=== PATIENT | male | born 1995 | race Caucasian/White ===

== ENCOUNTER 2016-04-03 11:45 | Emergency (ER) | payer BC, OTHER ==
[2016-04-03] MEDS ORDERED: ALBUTEROL NEB 2.5 MG/3 ML INH STA (12:24)
== END 2016-04-03 13:50 | disposition home or self-care (01) ==
DX: J18.9 Pneumonia, unspecified organism (principal)
CPT/HCPCS: 71020; 94640; 94664; 99283; 99284; J7613

== ENCOUNTER 2016-09-20 14:59 | Emergency (ER) | payer BC, OTHER ==
[2016-09-20 15:13] VITALS: BP 131/80
[2016-09-20] MEDS ORDERED: BUFFERED LIDOCAINE 10 ML SYRINGE ONE (16:09)
--- NOTE | 2016-09-20 16:22 | ED Physician Documentation ---
PD HPI UPPER EXT INJURY - Stated complaint Stated Complaint: LT UE LAC - Chief complaint Chief Complaint: Ext Problem - History obtained from History obtained from: Patient - History of Present Illness Location: Left, Forearm Type of injury: Laceration (knife) Where injury occurred: Work (PCS) Timing - onset: Today Review of Systems Constitutional: denies: Fever, Chills GI: denies: Abdominal Pain, Nausea : reports: Reviewed and negative PD PAST MEDICAL HISTORY - Past Medical History Past Medical History: Yes GI: GERD - Past Surgical History Past Surgical History: Yes - Present Medications Home Medications: Ambulatory Orders Medication Instructions Recorded Confirmed No Known Home Medications [No 09/20/16 09/20/16 Known Home Medications] - Allergies Allergies/Adverse Reactions: Allergies Allergy/AdvReac Type Severity Reaction Status Date / Time codeine Allergy Unknown Verified 09/20/16 15:10 - Social History Does the pt smoke?: Yes Smoking Status: Current every day smoker Does the pt drink ETOH?: No Does the pt have substance abuse?: No - Immunizations Immunizations: TDAP current <10years PD ED PE NORMAL - Vitals Vital signs reviewed: Yes - General General: Alert and oriented X 3, No acute distress - Extremities Extremities: Other (1 cm laceration mid left anterior forearm without distal neurovascular compromise, flexor tendon function is intact in all fingers.) - Neuro Neuro: Alert and oriented X 3, Normal speech - Psych Psych: Normal mood, Normal affect Results - Vitals Vitals: Vital Signs - 24 hr 09/20/16 15:06 Temperature 36.8 C Heart Rate 83 Respiratory 18 Rate Blood Pressure 131/80 H O2 Saturation 99 Oxygen O2 Source Room air Procedures - Laceration (location) L arm Length in cm: 1 Wound type: Linear Neurovascular status: Sensory intact, Motor intact, Vascular intact Tendon involvement: Tendon intact Anesthesia: Lidocaine 1%, With bicarb Wound Preparation: Betadine, Irrigated copiously NS Skin layer closure: Nylon, Interrupted, Size #-0 - enter number (4-0), Sutures - enter # (3) Other: Patient tolerated well, No complications, Neurovascular intact, Tetanus UTD Complexity: Simple Departure - Departure Disposition: 01 Home, Self Care Clinical Impression: Laceration of arm Qualifiers: Encounter type: initial encounter Laterality: left Qualified Code(s): S41.112A - Laceration without foreign body of left upper arm, initial encounter Condition: Good Record reviewed to determine appropriate education?: Yes Instructions: ED Laceration All Comments: Come back for any signs of infection which would include: Redness, swelling, drainage, increased pain, or fevers. Follow-up with your physician in 10-14 days for suture removal. Your blood pressure was elevated today on check into the emergency department. This does not mean that you have hypertension, it is a common phenomenon to come to the emergency department and have elevated blood pressure. I recommend that she see her primary care physician within the week to have it rechecked when you are feeling better. Forms: Activity restrictions
== END 2016-09-20 16:28 | disposition home or self-care (01) ==
LOC: ED 14:59
DX: S51.812A Laceration without foreign body of left forearm, initial encounter (principal); W26.0XXA Contact with knife, initial encounter; Y99.0 Civilian activity done for income or pay; R03.0 Elevated blood-pressure reading, without diagnosis of hypertension; F17.200 Nicotine dependence, unspecified, uncomplicated
CPT/HCPCS: 1040M; 12001; 99282; 99283

== ENCOUNTER 2020-06-15 10:30 | Emergency (ER) | payer BC, OTHER ==
[2020-06-15 10:40] VITALS: BP 128/73
--- NOTE | 2020-06-15 10:50 | ED Physician Documentation ---
PD HPI LOWER EXT INJURY - Stated complaint Stated Complaint: LT ANKLE PX - Chief complaint Chief Complaint: Ext Problem - History obtained from History obtained from: Patient - History of Present Illness PD HPI LOW EXT INJURY LOCATION: Left - Additional information Additional information: 4 days ago he twisted his ankle, work-related injury. He has had increasing medial ankle pain since. He was seen at an urgent care on the day of the injury and had both ankle and foot x-rays that were normal and he has documentation of these. Review of Systems Constitutional: reports: Reviewed and negative Eyes: reports: Reviewed and negative Ears: reports: Reviewed and negative Nose: reports: Reviewed and negative Throat: reports: Reviewed and negative PD PAST MEDICAL HISTORY - Past Medical History GI: GERD - Past Surgical History Past Surgical History: Yes - Present Medications Home Medications: Ambulatory Orders Medication Instructions Recorded Confirmed No Known Home Medications 09/20/16 09/20/16 - Allergies Allergies/Adverse Reactions: Allergies Allergy/AdvReac Type Severity Reaction Status Date / Time codeine Allergy Unknown Verified 06/15/20 10:41 - Social History Does the pt smoke?: Yes Smoking Status: Current every day smoker Does the pt drink ETOH?: No Does the pt have substance abuse?: No - Immunizations Immunizations: TDAP current <10years PD ED PE NORMAL - Vitals Vital signs reviewed: Yes - General General: Alert and oriented X 3, No acute distress - HEENT HEENT: PERRL, EOMI - Neck Neck: No bony TTP - Extremities Extremities: Other (Right ankle is tender along the medial malleolus without joint laxity. Painless inversion and eversion as well as internal and external rotation. Mild pain with flexion and extension of the ankle. No proximal fibular tenderness. Achilles function is intact.) - Neuro Neuro: Alert and oriented X 3, Normal speech Results - Vitals Vitals: Vital Signs - 24 hr 06/15/20 10:35 Temperature 36.3 C L Heart Rate 68 Respiratory 17 Rate Blood Pressure 128/73 O2 Saturation 99 Oxygen O2 Source Room air PD MEDICAL DECISION MAKING - ED course ED course: 25-year-old gentleman with persistent pain after a medial ankle sprain with previously negative x-rays. Probably too soon to consider eric-raying. Discussed follow-up and return precautions. He also needed an extension on his work note. Departure - Departure Disposition: 01 Home, Self Care Clinical Impression: Left ankle sprain Qualifiers: Encounter type: initial encounter Involved ligament of ankle: deltoid ligament Qualified Code(s): S93.422A - Sprain of deltoid ligament of left ankle, initial encounter Condition: Good Record reviewed to determine appropriate education?: Yes Instructions: ED Sprain Ankle W X Ray Follow-Up: [facility] [Provider Group] - Within 1 week Comments: Tylenol and ibuprofen as needed for pain. Return if worsening. Follow-up with the orthopedic surgeons, call them on Wednesday for an appointment. Forms: Activity restrictions Discharge Date/Time: 06/15/20 11:06
--- OUTSIDE RECORDS SUMMARY | 2020-06-19 02:30 | EXTERNAL MEDICAL SUMMARY RPT | Continuity of Care Document ---
:1995 Demographics Phone Unavailable Preferred Language Unknown Marital Status Unknown Christian Affiliation Unknown Race Unknown Ethnic Group Unknown Author Organization [place] Address [address] [id number] Phone Social History date description facility [phone]
== END 2020-06-15 11:06 | disposition home or self-care (01) ==
LOC: ED 10:30
DX: S93.422A Sprain of deltoid ligament of left ankle, initial encounter (principal); X50.1XXA Overexertion from prolonged static or awkward postures, initial encounter; Y99.0 Civilian activity done for income or pay; F17.200 Nicotine dependence, unspecified, uncomplicated
CPT/HCPCS: 99282; 99284

== ENCOUNTER 2023-01-02 21:48 | Emergency (ER) | payer BC ==
[2023-01-02 22:06] VITALS: BP 161/100; O2SAT 99
--- NOTE | 2023-01-02 22:27 | ED Physician Documentation ---
History of Present Illness - Stated complaint Stated Complaint: R FINGER LAC - Chief complaint Chief Complaint: Laceration - History obtained from History obtained from: Patient - History of Present Illness Timing: Today Pain level max: 2 Pain level now: 1 - Additonal information Additional information: Patient is a 27-year-old male who presents to the emergency department for laceration to the right index finger, palmar surface, mid phalanx. He injured it while working on a truck headlight. Last tetanus shot was 2017. No numbness or tingling. Full range of motion. Nothing makes it better or worse. No active bleeding now. Patient is right-handed. Review of Systems Constitutional: denies: Fever PD PAST MEDICAL HISTORY - Past Medical History Past Medical History: No GI: GERD - Past Surgical History Past Surgical History: Yes - Present Medications Home Medications: Ambulatory Orders Medication Instructions Recorded Confirmed No Known Home Medications 09/20/16 01/02/23 - Allergies Allergies/Adverse Reactions: Allergies Allergy/AdvReac Type Severity Reaction Status Date / Time codeine Allergy Unknown Verified 01/02/23 21:58 - Social History Does the pt smoke?: Yes Smoking Status: Current every day smoker Does the pt drink ETOH?: No Does the pt have substance abuse?: No - Immunizations Immunizations are current?: Yes Immunizations: TDAP current <10years - POLST Patient has POLST: No PD ED PE NORMAL - Vitals Vital signs reviewed: Yes - General General: Alert and oriented X 3, No acute distress - Derm Derm: Warm and dry - Neuro Neuro: Alert and oriented X 3 PD ED PE EXPANDED - Extremities LEAH UE/Hands Visual: 1 - laceration (1cm, linear, subcutaneous, NVI. tendon intact tested vs resistance) Results - Vitals Vitals: Vital Signs - 24 hr 01/02/23 21:54 Temperature 36.6 C Heart Rate 70 Respiratory 14 Rate Blood Pressure 161/100 H O2 Saturation 99 Oxygen O2 Source Room air Procedures - Laceration (location) Right index finger Length in cm: 1.5 Wound type: Into subcut fat Neurovascular status: Sensory intact, Motor intact, Vascular intact Tendon involvement: Tendon intact Wound preparation: Irrigated copiously NS, Wound explored, To the base Skin layer closure: Dermabond (T ring closure) Other: Patient tolerated well, No complications, Neurovascular intact, Dressing applied, Tetanus UTD PD Medical Decision Making - ED course Complexity details: considered differential, d/w patient ED course: Laceration repaired with the T ring closure system. Tetanus up-to-date. No evidence of tendon injury. Tendons tested against resistance. Neurovascular intact. Warnings of infection and instructions on wound care given at bedside. Also counseled on how to minimize scarring. Patient counseled regarding signs and symptoms for which I believe and urgent re-evaluation would be necessary. Patient with good understanding of and agreement to plan and is comfortable going home at this time This document was made in part using voice recognition software. While efforts are made to proofread this document, sound alike and grammatical errors may occur. Departure - Departure Disposition: 01 Home, Self Care Clinical Impression: Laceration of index finger Qualifiers: Encounter type: initial encounter Damage to nail status: without damage Foreign body presence: without foreign body Laterality: right Qualified Code(s): S61.210A - Laceration without foreign body of right index finger without damage to nail, initial encounter Condition: Good Instructions: ED Laceration Hand Follow-Up: your,doctor as needed [Other] Comments: Please follow-up with your doctor as needed for any further care. Do not apply ointment as this will dissolve the glue. Please leave the bandage in place for the next 1 week. This will fall off on its own. You can wear the splint for the next 2 to 3 days to help protect the area. Please return if you worsen, especially for redness, swelling or drainage from the wound. Forms: PCP List, Activity restrictions
== END 2023-01-02 22:36 | disposition home or self-care (01) ==
LOC: ED 21:48
DX: S61.210A Laceration without foreign body of right index finger without damage to nail, initial encounter (principal); X58.XXXA Exposure to other specified factors, initial encounter; F17.200 Nicotine dependence, unspecified, uncomplicated
CPT/HCPCS: 12001; 99282